=== PATIENT | male | born 1965 | race Caucasian/White ===

== ENCOUNTER → 2017-07-07 | Outpatient (CLI) | payer OTHER | LOC: BMCIMAGING 10:57 | PROVIDERS: ATTEND Registered Nurse General Practice | DX: M79.674 Pain in right toe(s) (principal); M79.89 Other specified soft tissue disorders ==

== ENCOUNTER → 2018-02-26 | Outpatient (CLI) | payer OTHER | LOC: BMCIMAGING 10:00 | PROVIDERS: ATTEND Family Medicine | DX: R07.81 Pleurodynia (principal); S29.9XXA Unspecified injury of thorax, initial encounter; Y93.55 Activity, bike riding; V19.9XXA Pedal cyclist (driver) (passenger) injured in unspecified traffic accident, initial encounter | CPT/HCPCS: 71101-PO ==